=== PATIENT | male | born 1955 | race Caucasian/White ===

== ENCOUNTER 2023-12-25 09:15 | Outpatient (RCR) | payer BC, SELFPAY | END 2024-04-23 23:59 | disposition home or self-care (01) | PROVIDERS: PCP Surgery; Visit Provider Surgery | DX: M54.50 Low back pain, unspecified (principal); G89.29 Other chronic pain; Z51.89 Encounter for other specified aftercare | CPT/HCPCS: 97110; 97140; 97162 ==